=== PATIENT | female | born 1990 | race Caucasian/White ===

== ENCOUNTER 2017-07-15 20:42 | Emergency (ER) | payer OTHER ==
[2017-07-15 22:13] LABS: URINE BLOOD (Dip) POC Negative (NEGATIVE); URINE GLUCOSE (Dip) POC Negative (NEGATIVE); URINE KETONES (Dip) POC Negative (NEGATIVE); URINE LEUKOCYTE EST (Dip) POC Negative (NEGATIVE); URINE NITRITE (Dip) POC Negative (NEGATIVE); URINE TOTAL PROTEIN POC Negative (NEGATIVE)
[2017-07-15 22:13] LABS: URINE PH (Dip) POC 5.5 (5.0-8.5)
[2017-07-15] MEDS: LIDOCAINE/MYLANTA 40 ML BTL PO (22:27)
[2017-07-15] MEDS: ACETAMINOPHEN 325 MG TAB PO (22:28)
[2017-07-15 22:59] LABS: ADD MAN DIFF? NO
[2017-07-15 23:02] LABS: WHITE BLOOD COUNT 7.2 10^3/ul (4.8-10.8)
[2017-07-15 23:02] LABS: BASOPHILS % 0.6 % (0.0-2.0); EOSINOPHILS # 0.1 10^3/ul (0.0-0.5); HEMATOCRIT 37.9 % (37.0-47.0); HEMOGLOBIN 12.6 g/dl (12.0-16.0); LYMPHOCYTES # 2.9 10^3/ul (0.8-2.9); LYMPHOCYTES % 39.8 % (15.0-51.0); MEAN CORPUSCULAR HEMOGLOBIN 31.4 pg (29.0-33.0); MEAN CORPUSCULAR HGB CONC 33.2 g/dl (32.0-37.0); MEAN CORPUSCULAR VOLUME 94.5 fl (82.0-101.0); MEAN PLATELET VOLUME 10.7 fl (7.4-10.4); MONOCYTE # 0.7 10^3/ul (0.3-0.9); MONOCYTES % 9.9 % (0.0-11.0); NEUTROPHIL # 3.5 10^3/ul (1.6-7.5); NEUTROPHILS % 48.4 % (39.0-77.0); PLATELET COUNT 272 10^3/UL (140-415); RED BLOOD COUNT 4.01 10^6/ul (4.20-5.40); RED CELL DISTRIBUTION WIDTH 12.5 % (11.5-14.5)
[2017-07-15 23:20] LABS: ALANINE AMINOTRANSFERASE 15 IU/L (13-69); ALBUMIN 4.1 g/dl (3.3-4.9); ALBUMIN/GLOBULIN RATIO 1.28; ALKALINE PHOSPHATASE 84 IU/L (42-121); ANION GAP 11 (8-16); ASPARTATE AMINO TRANSFERASE 15 IU/L (15-46); BILIRUBIN,INDIRECT 0.3 mg/dl (0-1.1); BILIRUBIN,TOTAL 0.3 mg/dl (0.2-1.3); BLOOD UREA NITROGEN 17 mg/dl (7-20); CALCIUM 9.2 mg/dl (8.4-10.2); CARBON DIOXIDE 29 mmol/L (21-31); CHLORIDE 106 mmol/L (97-110); CREATININE 0.58 mg/dl (0.44-1.00); GLUCOSE 59 mg/dl (70-220); LIPASE 137 U/L (23-300); POTASSIUM 3.9 mmol/L (3.5-5.1); SODIUM 142 mmol/L (135-144); TOTAL PROTEIN 7.3 g/dl (6.1-8.1)
== END 2017-07-15 23:44 | disposition home or self-care (01) ==
LOC: FTE 20:42
DX: K29.70 Gastritis, unspecified, without bleeding (principal); J45.909 Unspecified asthma, uncomplicated
CPT/HCPCS: 76705; 80053; 81003; 81025; 83690; 85025; 99284-25

== ENCOUNTER 2017-10-26 17:29 | Emergency (ER) | payer OTHER ==
[2017-10-26 19:28] LABS: URINE BLOOD (Dip) POC 2+ (NEGATIVE); URINE GLUCOSE (Dip) POC Negative (NEGATIVE); URINE KETONES (Dip) POC Negative (NEGATIVE); URINE LEUKOCYTE EST (Dip) POC Negative (NEGATIVE); URINE NITRITE (Dip) POC Negative (NEGATIVE); URINE TOTAL PROTEIN POC Negative (NEGATIVE)
[2017-10-26] MEDS: IBUPROFEN 600 MG TAB PO (19:34)
[2017-10-26] MEDS: LORAZEPAM 1 MG TAB PO (19:35)
== END 2017-10-26 20:01 | disposition home or self-care (01) ==
LOC: FTE 17:29
DX: F41.1 Generalized anxiety disorder (principal); M79.602 Pain in left arm; J45.909 Unspecified asthma, uncomplicated
CPT/HCPCS: 81003; 82962; 93005; 99283-25

== ENCOUNTER 2018-06-30 19:47 | Emergency (ER) | payer OTHER | END 2018-06-30 23:32 | disposition home or self-care (01) | LOC: FTE 23:32 | DX: J40 Bronchitis, not specified as acute or chronic (principal) | CPT/HCPCS: 99283; Z7502 ==

== ENCOUNTER 2018-07-14 19:25 | Emergency (ER) | payer OTHER | END 2018-07-15 00:01 | disposition home or self-care (01) | LOC: FTE 07-15 00:01 | DX: R05 Cough (principal); J45.909 Unspecified asthma, uncomplicated; R11.10 Vomiting, unspecified | CPT/HCPCS: 99283; Z7502 ==

== ENCOUNTER 2018-08-21 18:07 | Emergency (ER) | payer OTHER ==
[2018-08-21] MEDS ORDERED: ONDANSETRON 4 MG INJ IV (18:40)
[2018-08-21] MEDS ORDERED: ONDANSETRON (ODT) 4 MG TAB ODT (18:46)
[2018-08-21] MEDS ORDERED: SOD CHLORIDE 0.9% 1,000 ML IV (19:00)
[2018-08-21] MEDS ORDERED: LORAZEPAM 2 MG INJ IV (19:00)
[2018-08-21] MEDS ORDERED: LORAZEPAM 0.5 MG TAB PO (19:00)
[2018-08-21 19:09] LABS: ADD MAN DIFF? NO
[2018-08-21 19:11] LABS: BASOPHILS % 0.4 % (0.0-2.0); EOSINOPHILS # 0.1 10^3/ul (0.0-0.5); EOSINOPHILS % 0.6 % (0.0-7.0); HEMATOCRIT 37.6 % (37.0-47.0); HEMOGLOBIN 12.1 g/dl (12.0-16.0); LYMPHOCYTES # 2.6 10^3/ul (0.8-2.9); LYMPHOCYTES % 29.4 % (15.0-51.0); MEAN CORPUSCULAR HEMOGLOBIN 29.9 pg (29.0-33.0); MEAN CORPUSCULAR HGB CONC 32.2 g/dl (32.0-37.0); MEAN CORPUSCULAR VOLUME 92.8 fl (82.0-101.0); MEAN PLATELET VOLUME 10.3 fl (7.4-10.4); MONOCYTE # 0.8 10^3/ul (0.3-0.9); MONOCYTES % 8.5 % (0.0-11.0); NEUTROPHIL # 5.4 10^3/ul (1.6-7.5); NEUTROPHILS % 60.8 % (39.0-77.0); PLATELET COUNT 268 10^3/UL (140-415); RED BLOOD COUNT 4.05 10^6/ul (4.20-5.40); RED CELL DISTRIBUTION WIDTH 13.3 % (11.5-14.5)
[2018-08-21 19:11] LABS: WHITE BLOOD COUNT 8.9 10^3/ul (4.8-10.8)
[2018-08-21 19:34] LABS: ALANINE AMINOTRANSFERASE 17 IU/L (13-69); ALBUMIN 4.2 g/dl (3.3-4.9); ALKALINE PHOSPHATASE 65 IU/L (42-121); ANION GAP 5 (5-13); ASPARTATE AMINO TRANSFERASE 21 IU/L (15-46); BILIRUBIN,INDIRECT 0.6 mg/dl (0-1.1); BILIRUBIN,TOTAL 0.6 mg/dl (0.2-1.3); BLOOD UREA NITROGEN 17 mg/dl (7-20); CALCIUM 9.3 mg/dl (8.4-10.2); CARBON DIOXIDE 30 mmol/L (21-31); CHLORIDE 104 mmol/L (97-110); CREATININE 0.72 mg/dl (0.44-1.00); Estimated GFR > 60 mL/min (>60); GLUCOSE 94 mg/dl (70-220); POTASSIUM 3.8 mmol/L (3.5-5.1); SODIUM 139 mmol/L (135-144); TOTAL PROTEIN 7.2 g/dl (6.1-8.1)
[2018-08-21] MEDS: LORAZEPAM 2 MG INJ IV (19:46)
[2018-08-21] MEDS: ONDANSETRON 4 MG INJ IV (19:46)
[2018-08-21] MEDS: SOD CHLORIDE 0.9% 1,000 ML IV (19:47)
== END 2018-08-21 20:51 | disposition home or self-care (01) ==
LOC: FTE 18:07
DX: F41.9 Anxiety disorder, unspecified (principal); R11.10 Vomiting, unspecified; J45.901 Unspecified asthma with (acute) exacerbation
CPT/HCPCS: 36415; 71046; 80053; 85025; 93005; 99285-25